=== PATIENT | male | born 1940 | race Two or more races ===

== ENCOUNTER 2023-12-23 16:54 | Inpatient (IN) | payer BC, MEDICAID ==
[~2023-12-23] VITALS: Ht 172.7 cm; Wt 68.8 kg
[2023-12-23 18:06] VITALS: PULSE 83; RESP 17; O2SAT 92
[2023-12-23 18:10] LABS: Basophils # (auto) 0 10 ^3/uL (0-0.2); Basophils % (auto) 0.4 % (0.0-2.0); Eosinophils # (auto) 0.2 10 ^3/uL (0-0.8); Eosinophils % (auto) 2.3 % (0.0-7.0); Hematocrit 31.4 % (41.0-53.0); Hemoglobin 10.5 g/dL (13.5-17.5); Lymphocytes # (auto) 1.3 10 ^3/uL (0.4-5.4); Lymphocytes % (auto) 12.6 % (10.0-50.0); Mean Corpuscular Hemoglobin 30.5 pg (28.0-32.0); Mean Corpuscular Hgb Conc. 33.3 g/dL (32.0-36.0); Mean Corpuscular Volume 91.5 fL (80.0-100.0); Monocytes # (auto) 0.7 10 ^3/uL (0-1.3); Monocytes % (auto) 6.6 % (0.0-12.0); Neutrophils # (auto) 8.1 10 ^3/uL (1.6-8.6); Neutrophils % (auto) 78.1 % (37.0-80.0); Nucleated Red Blood Cells % 0.1 %; Red Blood Cells 3.43 10^6/uL (4.5-5.90); Red Cell Distribution Width 14.5 % (11.8-14.3); White Blood Cell 10.3 10^3/uL (4.4-10.8)
[2023-12-23] MEDS: ONDANSETRON ODT 4 MG TAB PO ONE (18:21)
[2023-12-23] MEDS: ACETAMINOPHEN 500 MG TAB PO ONE (18:21)
[2023-12-23] MEDS: SODIUM CHLORIDE 0.9% 1,000 ML IV ONE ×3 (18:21→21:42)
[2023-12-23 18:35] LABS: Alanine Aminotransferase 12 U/L (7-40); Albumin 3.1 g/dL (3.2-4.8); Alkaline Phosphatase 81 U/L (46-116); Anion Gap 13 (5-15); Aspartate Aminotransferase 20 U/L (13-40); BUN/Creatinine Ratio 17.2 (10.0-20.0); Blood Alcohol < 3.0 mg/dL (<10); Blood Urea Nitrogen 38 mg/dL (9-23); Calcium 7.5 mg/dL (8.5-10.1); Carbon Dioxide 24 mmol/L (20-30); Chloride 98 mmol/L (98-107); Glucose 68 mg/dL (74-106); Potassium 3.3 mmol/L (3.5-5.1); Sodium 135 mmol/L (136-145)
[2023-12-23 18:36] LABS: Bilirubin, Total 0.6 mg/dL (0.2-1.0); Total Protein 5.1 g/dL (5.7-8.2)
[2023-12-23 18:44] LABS: Lactic Acid w/Reflex 4.1 mmol/L (0.4-2.0); Lipase 21 U/L (12-53)
[2023-12-23] MEDS: AZITHROMYCIN 500MG/ 250ML 250 ML IV ONE (19:59)
[2023-12-23 20:00] VITALS: PULSE 86; RESP 16; O2SAT 96
[2023-12-23] MEDS: CALCIUM GLUC 1,000mg/50ml-NS 50 ML IV SCH (21:57)
[2023-12-23] MEDS ORDERED: ACETAMINOPHEN 325 MG TAB PO PRN (22:00)
[2023-12-23] MEDS ORDERED: DEXTROSE (50%) 50ML SYRG IV PRN (22:00)
[2023-12-23] MEDS ORDERED: DOCUSATE SOD 100 MG CAP PO PRN (22:00)
[2023-12-23] MEDS ORDERED: ONDANSETRON HCL 4 MG/2 ML VIAL IV PRN (22:00)
[2023-12-23] MEDS ORDERED: HYDROcodone-ACET 5/325MG TAB PO PRN (22:00)
[2023-12-23] MEDS: SODIUM CHLOR 0.9% PF (SALINE LOCK) 10ML VIAL/SYR IV SCH (22:28)
[2023-12-23] MEDS: POTASSIUM CHL 20 Meq TABLET PO ONE (22:46)
[2023-12-23] MEDS: ATORVASTATIN 20 MG TAB PO SCH (22:46)
[2023-12-23] MEDS: ALBUMIN 25% 100 ML IV ONE (22:47)
[2023-12-23 23:17] LABS: Urine Bacteria None Seen /hpf (None Seen)
[2023-12-23 23:30] LABS: Urine Blood Negative /uL (Negative); Urine Clarity Clear (Clear); Urine Color Yellow (Yellow); Urine Hyaline Cast FEW /lpf (0 - 2); Urine Protein, UAD Negative (Negative); Urine Specific Gravity 1.012 (1.001-1.035); Urine Urobilinogen Normal (Negative); Urine WBC 1 /hpf (0 - 3)
[2023-12-23] MEDS ORDERED: MORPHINE SULFATE INJ 2 MG/ml SYRG IV PRN (23:45)
[2023-12-23] MEDS ORDERED: NITROGLYCERIN 0.4 MG SL TAB SL PRN (23:45)
[2023-12-24] VITALS (7 sets, daily range): BP systolic 97–122; BP diastolic 57–58; PULSE 59–77; RESP 12–20; O2SAT 96–99
[2023-12-24] MEDS: InsuLIN REG 1unit/0.01ml Soln (100units/ml) SC SCH
[2023-12-24] MEDS: ACCU-CHEK COMFORT CURVE STRIP VI SCH (00:12)
[2023-12-24] MEDS: NOREPINEPHRINE 8 MG/250ML KIT 250 ML IV SCH (01:50)
[2023-12-24] MEDS: NOREPINEPHRINE 8 MG/250ML KIT 250 ML IV ONE (01:55)
[2023-12-24 06:58] LABS: Basophils # (auto) 0.1 10 ^3/uL (0-0.2); Basophils % (auto) 0.7 % (0.0-2.0); Eosinophils # (auto) 0.3 10 ^3/uL (0-0.8); Eosinophils % (auto) 2.7 % (0.0-7.0); Hematocrit 35.2 % (41.0-53.0); Hemoglobin 11.5 g/dL (13.5-17.5); Lymphocytes # (auto) 2.1 10 ^3/uL (0.4-5.4); Lymphocytes % (auto) 19.1 % (10.0-50.0); Mean Corpuscular Hemoglobin 30.2 pg (28.0-32.0); Mean Corpuscular Hgb Conc. 32.6 g/dL (32.0-36.0); Mean Corpuscular Volume 92.7 fL (80.0-100.0); Monocytes # (auto) 0.8 10 ^3/uL (0-1.3); Monocytes % (auto) 7.3 % (0.0-12.0); Neutrophils # (auto) 7.8 10 ^3/uL (1.6-8.6); Neutrophils % (auto) 70.2 % (37.0-80.0); Nucleated Red Blood Cells % 0.1 %; Red Cell Distribution Width 14.8 % (11.8-14.3)
[2023-12-24 07:17] LABS: Albumin 3.4 g/dL (3.2-4.8); Alkaline Phosphatase 80 U/L (46-116); Anion Gap 12 (5-15); Aspartate Aminotransferase 27 U/L (13-40); BUN/Creatinine Ratio 13.9 (10.0-20.0); Bilirubin, Total 0.7 mg/dL (0.2-1.0); Blood Urea Nitrogen 28 mg/dL (9-23); Carbon Dioxide 20 mmol/L (20-30); Chloride 100 mmol/L (98-107); Glucose 130 mg/dL (74-106); Potassium 3.7 mmol/L (3.5-5.1); Sodium 132 mmol/L (136-145); Total Protein 5.7 g/dL (5.7-8.2)
[2023-12-24 07:18] LABS: Alanine Aminotransferase 9 U/L (7-40)
[2023-12-24] MEDS: ASPirin 81 mg TAB PO SCH (09:38)
[2023-12-24] MEDS: cefTRIAXone 1GM/50ML D5W 50 ML IV SCH (09:38)
[2023-12-24] MEDS: FAMOTIDINE (10MG/ML) 2ML VL IV SCH (09:38)
[2023-12-24] MEDS: FUROSEMIDE 20 MG/2 ML VIAL IV SCH (09:39)
[2023-12-24 10:58] LABS: Magnesium 1.3 mg/dL (1.6-2.6)
[2023-12-24 10:59] LABS: Phosphorus 3.5 mg/dL (2.4-5.1)
[2023-12-24 15:36] LABS: Sodium Urine < 10 mmol/L (40-220)
[2023-12-24 15:44] LABS: Creatinine, Urine 107.59 mg/dL (30.0-125.0)
[2023-12-24] MEDS: AZITHROMYCIN 500MG/ 250ML 250 ML IV SCH (20:13)
[2023-12-25 08:28] VITALS: PULSE 84; RESP 18; O2SAT 98
[2023-12-25 10:32] LABS: Chloride 102 mmol/L (98-107); Potassium 4.2 mmol/L (3.5-5.1); Sodium 136 mmol/L (136-145)
[2023-12-25 10:33] LABS: Anion Gap 9 (5-15); Carbon Dioxide 25 mmol/L (20-30)
[2023-12-25 10:38] LABS: BUN/Creatinine Ratio 18.4 (10.0-20.0); Blood Urea Nitrogen 28 mg/dL (9-23); Glucose 95 mg/dL (74-106)
[2023-12-25] MEDS: SODIUM CHLORIDE 0.9% 1,000 ML IV ONE (11:05)
[2023-12-25] MEDS ORDERED: ASPI-543 PO (15:50)
[2023-12-25] MEDS ORDERED: PANT-62 PO (15:50)
[2023-12-25] MEDS ORDERED: METF-370 PO (15:50)
[2023-12-25] MEDS ORDERED: TAMS0.4C36 PO (15:50)
[2023-12-25] MEDS ORDERED: GABA-1250 PO (15:50)
[2023-12-25] MEDS ORDERED: ASCO500T6 PO (15:50)
[2023-12-25] MEDS ORDERED: ATOR40TA52 PO (15:50)
[2023-12-25] MEDS ORDERED: LISI40TA16 PO (15:50)
[2023-12-25] MEDS ORDERED: FURO40TA4 PO (15:50)
[2023-12-25 19:30] VITALS: PULSE 95; RESP 20; O2SAT 95
[2023-12-25 23:14] VITALS: BP_SYST 130; BP_SYST 153; BP_DIAS 70; BP_DIAS 89; PULSE 90; PULSE 96; RESP 18; TEMP 97.8; O2SAT 100; O2SAT 98
[2023-12-26] VITALS (10 sets, daily range): BP systolic 134–147; BP diastolic 68–87; PULSE 60–98; RESP 16–22; TEMP 97.8–98.4; O2SAT 92–99
[2023-12-26 06:58] LABS: Chloride 103 mmol/L (98-107); Potassium 3.9 mmol/L (3.5-5.1); Sodium 135 mmol/L (136-145)
[2023-12-26 06:59] LABS: Anion Gap 7 (5-15); Carbon Dioxide 25 mmol/L (20-30)
[2023-12-26 07:04] LABS: BUN/Creatinine Ratio 14.4 (10.0-20.0); Blood Urea Nitrogen 17 mg/dL (9-23); Glucose 92 mg/dL (74-106)
[2023-12-26] MEDS: TAMSULOSIN HYDROCHLORIDE 0.4 MG CAP PO SCH (17:38)
[2023-12-27] VITALS (7 sets, daily range): BP systolic 105–140; BP diastolic 56–73; PULSE 72–86; RESP 14–18; TEMP 97.6–98.8; O2SAT 90–98
[2023-12-27 07:27] LABS: Chloride 105 mmol/L (98-107); Potassium 3.8 mmol/L (3.5-5.1); Sodium 138 mmol/L (136-145)
[2023-12-27 07:28] LABS: Anion Gap 6 (5-15); Carbon Dioxide 27 mmol/L (20-30)
[2023-12-27 07:33] LABS: BUN/Creatinine Ratio 15.8 (10.0-20.0); Blood Urea Nitrogen 16 mg/dL (9-23); Glucose 67 mg/dL (74-106)
[2023-12-27] MEDS: cefTRIAXone 1GM/50ML D5W 50 ML IV SCH (16:06)
[2023-12-28 01:00] VITALS: BP 103/59; PULSE 76; RESP 18; TEMP 98; O2SAT 96
[2023-12-28 05:00] VITALS: BP 125/66; PULSE 76; RESP 18; O2SAT 96
[2023-12-28 08:00] VITALS: PULSE 69
[2023-12-28 08:50] VITALS: BP 116/60; PULSE 76; RESP 16; TEMP 97.9; O2SAT 95
[2023-12-28 09:33] LABS: INR 1.19 (0.9-1.15); Partial Thromboplastin Time 45.3 SEC (24.5-34.5); Prothrombin Time 12.4 sec (9.3-11.8)
[2023-12-28] MEDS ORDERED: DOXY-447 PO (12:29)
[2023-12-28 13:00] VITALS: BP 133/61; PULSE 88; RESP 16; TEMP 97.9; O2SAT 96
[2023-12-28] MEDS ORDERED: DOXYCYCLINE 100 MG TAB/CAP PO SCH (22:00)
== END 2023-12-28 17:41 | disposition home or self-care (01) | DRG 871 ==
LOC: EDBD 16:54 → ER 16:54 → TELE 23:44 → TELE-WESTW 12-25 23:02
PROVIDERS: ADMIT Nurse Practitioner Family; ATTEND Nurse Practitioner
PROC: 5A09357 Assistance with Respiratory Ventilation, Less than 24 Consecutive Hours, Continuous Positive Airway Pressure (ICD-10-PCS; 2023-12-24)
PROC: 0W993ZZ Drainage of Right Pleural Cavity, Percutaneous Approach (ICD-10-PCS; principal; 2023-12-28)
DX: A41.9 Sepsis, unspecified organism (principal); G93.41 Metabolic encephalopathy; J18.9 Pneumonia, unspecified organism; N17.0 Acute kidney failure with tubular necrosis; R65.21 Severe sepsis with septic shock; J96.01 Acute respiratory failure with hypoxia; I13.0 Hypertensive heart and chronic kidney disease with heart failure and stage 1 through stage 4 chronic kidney disease, or unspecified chronic kidney disease; I50.30 Unspecified diastolic (congestive) heart failure; J90 Pleural effusion, not elsewhere classified; E87.1 Hypo-osmolality and hyponatremia; E11.649 Type 2 diabetes mellitus with hypoglycemia without coma; E11.22 Type 2 diabetes mellitus with diabetic chronic kidney disease; D63.1 Anemia in chronic kidney disease; E11.65 Type 2 diabetes mellitus with hyperglycemia; N18.9 Chronic kidney disease, unspecified; E78.5 Hyperlipidemia, unspecified; N40.0 Benign prostatic hyperplasia without lower urinary tract symptoms; F03.90 Unspecified dementia, unspecified severity, without behavioral disturbance, psychotic disturbance, mood disturbance, and anxiety; Z79.899 Other long term (current) drug therapy; Z79.84 Long term (current) use of oral hypoglycemic drugs
CPT/HCPCS: 32555; 36415; 70450; 71045; 76775; 80048; 80053; 80320; 81001; 82043; 82306; 82570; 82962; 83605; 83690; 83735; 83880; 83970; 84100; 84300; 84484; 85025; 85610; 85730; 87040; 93005; 93306; 94660; 96365; A4565; G0378; J1815; J3490; P9047; Q0162